=== PATIENT | male | born 1960 | race African-American/Black ===

== ENCOUNTER 2020-02-17 07:22 | Emergency (ER) | payer OTHER ==
[~2020-02-17] VITALS: Ht 177.8 cm; Wt 65.8 kg
[2020-02-17] MEDS ORDERED: fentaNYL 100 mcg/2 mL IV ONE ×2 (07:30→09:30)
--- NOTE | 2020-02-17 07:30 | NUR ---
ED Nurse Note: pt presents as per triage. pt is very restless and belligerent with staff and md. pt given explanations of plan of care. pt given vomit bag to spit phlegm in. pt requests ice chips, aware to remain npo per md. pt tolerates iv start and lab draw well.
--- NOTE | 2020-02-17 07:41 | Emergency Room Report ---
History of Present Illness General Chief Complaint: Abdominal Pain Source: Patient, EMS Present Illness HPI Patient is a 59-year-old male brought in by EMS from his hotel for abdominal pain. Patient complains of diffuse abdominal pain nausea and vomiting. He complains of nonbilious nonbloody vomitus. He denies any fever or chills. Patient states that his pain is so severe that he feels short of breath from it. Patient denies any chest pain. Patient denies any cough. He denies any dysuria or hematuria. He states that his colostomy site has been putting out normal amounts of stool that are nonbloody. Patient is extremely demanding and verbally combative with EMS, nursing staff and myself. Allergies: Coded Allergies: No Known Allergies (Unverified , 02/17/20) COVID-19 Screening Contact w/high risk pt: No Experienced COVID-19 symptoms?: No COVID-19 Testing performed PACKING ROOM WORKER: No Patient History Reviewed Nursing Documentation: PMH: Agreed; PSxH: Agreed Review of Systems All Other Systems: negative except mentioned in HPI Physical Exam Vital Signs Date Time Temp Pulse Resp B/P (MAP) Pulse Ox O2 Delivery O2 Flow Rate FiO2 02/17/20 07:18 98.2 104 19 152/88 (109) 97 Room Air Sp02 EP Interpretation: reviewed, normal General Appearance: well appearing, alert, GCS 15, mild distress Head: normocephalic, atraumatic Eyes: bilateral eye normal inspection, bilateral eye PERRL ENT: hearing grossly normal, normal pharynx, no angioedema, normal voice Neck: full range of motion, supple/symm/no masses Respiratory: chest non-tender, lungs clear, normal breath sounds, speaking full sentences Cardiovascular #1: regular rate, rhythm, no edema Gastrointestinal: other - Mild diffuse abdominal pain with no guarding or rebound, left lower quadrant colostomy intact with brown stools Rectal: deferred Genitourinary: no CVA tenderness Musculoskeletal: normal range of motion, no calf tenderness 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 Patient is adamant that she does not want a CAT scan because he states he has had too many and does not want any radiation. Both myself, the fish roe technician and bedside nurse Danielle explained to the patient that we cannot diagnose life-threatening conditions that would otherwise be visible to us on CT. Patient continues to decline any CT studies. I have ordered for renal ultrasounds due to the patient's acute renal insufficiency as well as an obstructive series of his abdomen. At 9:35 AM brain wave technician states that renal ultrasound is normal. No evidence of hydronephrosis. AT 1010am, patient also refusing x-rays. I ordered an abdominal series to look for any evidence of obstruction. At 1040 patient had an episode of elevated blood pressure. I ordered for 10 mg of IV hydralazine. Laboratory Tests Test 02/17/20 07:30 02/17/20 10:20 White Blood Count 10.2 K/UL (4.8-10.8) Red Blood Count 5.06 M/UL (4.70-6.10) Hemoglobin 14.0 G/DL (14.2-18.0) L Hematocrit 43.2 % (42.0-52.0) Mean Corpuscular Volume 85 FL (80-99) Mean Corpuscular Hemoglobin 27.7 PG (27.0-31.0) Mean Corpuscular Hemoglobin Concent 32.5 G/DL (32.0-36.0) Red Cell Distribution Width 14.0 % (11.6-14.8) Platelet Count 386 K/UL (150-450) Mean Platelet Volume 5.8 FL (6.5-10.1) L Neutrophils (%) (Auto) 67.5 % (45.0-75.0) Lymphocytes (%) (Auto) 19.4 % (20.0-45.0) L Monocytes (%) (Auto) 9.6 % (1.0-10.0) Eosinophils (%) (Auto) 0.1 % (0.0-3.0) Basophils (%) (Auto) 3.3 % (0.0-2.0) H Prothrombin Time 11.4 SEC (9.30-11.50) Prothrombin Time INR 1.0 (0.9-1.1) Activated Partial Thromboplast Time 28 SEC (23-33) Sodium Level 135 MMOL/L (136-145) L Potassium Level 3.6 MMOL/L (3.5-5.1) Chloride Level 96 MMOL/L (98-107) L Carbon Dioxide Level 25 MMOL/L (21-32) Anion Gap 14 mmol/L (5-15) Blood Urea Nitrogen 45 mg/dL (7-18) H Creatinine 4.6 MG/DL (0.55-1.30) H Estimated Glomerular Filtration Rate 15.9 mL/min (>60) Glucose Level 141 MG/DL (74-106) H Lactic Acid Level 1.90 mmol/L (0.4-2.0) Calcium Level 9.3 MG/DL (8.5-10.1) Magnesium Level 2.4 MG/DL (1.8-2.4) Total Bilirubin 1.4 MG/DL (0.2-1.0) H Direct Bilirubin 0.1 MG/DL (0.0-0.3) Aspartate Amino Transferase (AST) 34 U/L (15-37) Alanine Aminotransferase (ALT) 16 U/L (12-78) Alkaline Phosphatase 112 U/L (46-116) Troponin I 0.006 ng/mL (0.000-0.056) Total Protein 8.7 G/DL (6.4-8.2) H Albumin 4.3 G/DL (3.4-5.0) Globulin 4.4 g/dL Albumin/Globulin Ratio 1.0 (1.0-2.7) Lipase 115 U/L (73-393) Urine Color Yellow Urine Appearance Clear Urine pH 5 (4.5-8.0) Urine Specific [place] 1.025 (1.005-1.035) Urine Protein 3+ (NEGATIVE) H Urine Glucose (UA) Negative (NEGATIVE) Urine Ketones 1+ (NEGATIVE) H Urine Blood 2+ (NEGATIVE) H Urine Nitrite Negative (NEGATIVE) Urine Bilirubin Negative (NEGATIVE) Urine Urobilinogen Normal MG/DL (0.0-1.0) Urine Leukocyte Esterase 1+ (NEGATIVE) H Urine RBC 2-4 /HPF (0 - 0) H Urine WBC 2-4 /HPF (0 - 0) Urine Squamous Epithelial Cells Few /LPF (NONE/OCC) Urine Bacteria Few /HPF (NONE) Urine Hyaline Casts 0-2 /LPF (NONE) H Urine Mucus Few /LPF (NONE/OCC) H Urine Opiates Screen Negative (NEGATIVE) Urine Barbiturates Screen Negative (NEGATIVE) Phencyclidine (PCP) Screen Negative (NEGATIVE) Urine Amphetamines Screen Negative (NEGATIVE) Urine Benzodiazepines Screen Negative (NEGATIVE) Urine Cocaine Screen Negative (NEGATIVE) Urine Marijuana (THC) Screen Positive (NEGATIVE) H Laboratory Tests Test 02/17/20 07:30 White Blood Count 10.2 K/UL (4.8-10.8) Red Blood Count 5.06 M/UL (4.70-6.10) Hemoglobin 14.0 G/DL (14.2-18.0) L Hematocrit 43.2 % (42.0-52.0) Mean Corpuscular Volume 85 FL (80-99) Mean Corpuscular Hemoglobin 27.7 PG (27.0-31.0) Mean Corpuscular Hemoglobin Concent 32.5 G/DL (32.0-36.0) Red Cell Distribution Width 14.0 % (11.6-14.8) Platelet Count 386 K/UL (150-450) Mean Platelet Volume 5.8 FL (6.5-10.1) L Neutrophils (%) (Auto) 67.5 % (45.0-75.0) Lymphocytes (%) (Auto) 19.4 % (20.0-45.0) L Monocytes (%) (Auto) 9.6 % (1.0-10.0) Eosinophils (%) (Auto) 0.1 % (0.0-3.0) Basophils (%) (Auto) 3.3 % (0.0-2.0) H Prothrombin Time 11.4 SEC (9.30-11.50) Prothrombin Time INR 1.0 (0.9-1.1) Activated Partial Thromboplast Time 28 SEC (23-33) Sodium Level 135 MMOL/L (136-145) L Potassium Level 3.6 MMOL/L (3.5-5.1) Chloride Level 96 MMOL/L (98-107) L Carbon Dioxide Level 25 MMOL/L (21-32) Anion Gap 14 mmol/L (5-15) Blood Urea Nitrogen 45 mg/dL (7-18) H Creatinine 4.6 MG/DL (0.55-1.30) H Estimated Glomerular Filtration Rate 15.9 mL/min (>60) Glucose Level 141 MG/DL (74-106) H Lactic Acid Level 1.90 mmol/L (0.4-2.0) Calcium Level 9.3 MG/DL (8.5-10.1) Magnesium Level 2.4 MG/DL (1.8-2.4) Total Bilirubin 1.4 MG/DL (0.2-1.0) H Direct Bilirubin 0.1 MG/DL (0.0-0.3) Aspartate Amino Transferase (AST) 34 U/L (15-37) Alanine Aminotransferase (ALT) 16 U/L (12-78) Alkaline Phosphatase 112 U/L (46-116) Troponin I 0.006 ng/mL (0.000-0.056) Total Protein 8.7 G/DL (6.4-8.2) H Albumin 4.3 G/DL (3.4-5.0) Globulin 4.4 g/dL Albumin/Globulin Ratio 1.0 (1.0-2.7) Lipase 115 U/L (73-393) EKG Diagnostic Results Troponin ordered: Yes When was troponin ordered?: Feb 17, 2020 EKG Time: 07:31 EP Interpretation: Makeda Amaro MD Rate: normal - 7 bpm Rhythm: NSR ST Segments: no acute changes Other Impression LVH ASA given to the pt in ED: No Rhythm Strip Diag. Results Rhythm Strip Time: 07:41 EP Interpretation: yes - Makeda Amaro MD Rate: 76 bpm Rhythm: NSR, no PVC's, no ectopy Last Vital Signs Date Time Temp Pulse Resp B/P (MAP) Pulse Ox O2 Delivery O2 Flow Rate FiO2 02/17/20 07:18 98.2 104 19 152/88 (109) 97 Room Air Disposition: ADMITTED INPATIENT - Transfer to [facility] Condition: Critical Physician Consult: Dr. Deniz Prince at 1015am for transfer Additional Instructions: Please note that this report is being documented using [employer] technology. This can lead to erroneous entry secondary to incorrect interpretation by the dictating instrument. Makeda Amaro M.D. Feb 17, 2020 07:41
[2020-02-17] MEDS ORDERED: AMLODIPINE BESYL5 MG ORAL (07:56)
[2020-02-17] MEDS ORDERED: NORCO 5-325 TA1 EAC1 ORAL (07:56)
--- NOTE | 2020-02-17 07:56 | NUR ---
ED Nurse Note: pt refuses ct scan, md aware. pt states he gets too much radiation and doesnt want anymore. pt relates he is out of his htn meds and hasnt been to see his md due to covid restrictions. pt resting quietly now after pain meds given. no further n/c
[2020-02-17 08:02] LABS: BASOPHILS % (AUTO) 3.3 % (0.0-2.0); EOSINOPHILS % (AUTO) 0.1 % (0.0-3.0); HEMATOCRIT 43.2 % (42.0-52.0); LYMPHOCYTES % (AUTO) 19.4 % (20.0-45.0); MEAN CORPUSCULAR VOLUME 85 FL (80-99); MONOCYTES % (AUTO) 9.6 % (1.0-10.0); NEUTROPHILS % (AUTO) 67.5 % (45.0-75.0); PLATELET COUNT 386 K/UL (150-450); RED BLOOD COUNT 5.06 M/UL (4.70-6.10); WHITE BLOOD COUNT 10.2 K/UL (4.8-10.8)
--- NOTE | 2020-02-17 08:11 | NUR ---
ED Nurse Note: pt aware to obtain urine sample when able
[2020-02-17 08:12] LABS: CALCIUM 9.3 MG/DL (8.5-10.1); CREATININE 4.6 MG/DL (0.55-1.30); POTASSIUM 3.6 MMOL/L (3.5-5.1)
[2020-02-17 08:28] LABS: ALBUMIN 4.3 G/DL (3.4-5.0); BILIRUBIN,TOTAL 1.4 MG/DL (0.2-1.0)
[2020-02-17 08:29] LABS: BILIRUBIN,DIRECT 0.1 MG/DL (0.0-0.3)
--- NOTE | 2020-02-17 08:55 | NUR ---
ED Nurse Note: pt refuses cxr, aware.
--- NOTE | 2020-02-17 09:36 | NUR ---
ED Nurse Note: pt with bedside us being done. pt remedicated for pain return.
--- NOTE | 2020-02-17 09:44 | NUR ---
ED Nurse Note: pt with possible transfer per payor request. appears more comfrotable after dose of pain meds. attempting to void
--- NOTE | 2020-02-17 10:18 | NUR ---
ED Nurse Note: pt aware of plan for transfer
[2020-02-17 10:32] LABS: APPEARANCE,URINE CLEAR; BILIRUBIN, URINE NEGATIVE (NEGATIVE); GLUCOSE, URINE (UA) NEGATIVE (NEGATIVE); KETONES,URINE 1+ (NEGATIVE); LEUKOCYTE ESTERASE ,URINE 1+ (NEGATIVE); NITRITE,URINE NEGATIVE (NEGATIVE); PH,URINE 5 (4.5-8.0); PROTEIN,URINE 3+ (NEGATIVE); UROBILINOGEN,URINE NORMAL MG/DL (0.0-1.0)
--- NOTE | 2020-02-17 10:32 | NUR ---
ED Nurse Note: pt ok to have water po now per md. awaits transfer.
[2020-02-17 10:38] VITALS: BP 237/105
[2020-02-17 10:39] LABS: COLOR,URINE YELLOW
[2020-02-17 11:36] VITALS: BP 192/97
--- NOTE | 2020-02-17 11:36 | NUR ---
ED Nurse Note: [facility] transport here.
[2020-02-17 11:40] VITALS: BP 192/97
--- NOTE | 2020-02-18 06:19 | Diagnostic Imaging Report ---
EXAM: US Abdomen Complete CLINICAL HISTORY: PAIN TECHNIQUE: Real-time ultrasound of the abdomen with image documentation. COMPARISON: No relevant prior studies available. FINDINGS/IMPRESSION: The right kidney measures 9.1 cm. No hydronephrosis or nephrolithiasis. The left kidney measures 9.5 cm. No hydronephrosis or nephrolithiasis. The prevoid bladder volume is 122 mL. No bladder wall thickening or bladder debris. Post void residual was not assessed. Normal renal echogenicity bilaterally.
== END 2020-02-17 11:45 | disposition other institution (70) ==
LOC: EDBD 07:22 → EMR 07:45 → CMPBEDREQ 08:43 → EMR 11:45
DX: N19 Unspecified kidney failure (principal); E86.0 Dehydration; I10 Essential (primary) hypertension; F12.20 Cannabis dependence, uncomplicated
CPT/HCPCS: 36415; 76770; 80053; 80307; 81003; 82248; 83605; 83690; 83735; 84484; 85025; 85610; 85730; 86850; 86900; 86901; 96361; 96374; 96375; 96376; J0360; J2405; J3010; J7030; Z7502; 99285

== ENCOUNTER 2020-04-10 14:19 | Emergency (ER) | payer OTHER ==
[~2020-04-10] VITALS: Ht 188 cm; Wt 81.6 kg
[~2020-04-10 14:19] MED LIST: AMLODIPINE BESYL5 MG ORAL; NORCO 5-325 TA1 EAC1 ORAL
[2020-04-10 14:25] VITALS: BP 114/80
--- NOTE | 2020-04-10 14:25 | NUR ---
ED Nurse Note: pt BIBA LAD [facility] 57 from a [facility] for abd pain, N/V x2 days. EMS report witnessing 1 episode of emesis, did not appear to have any blood in it. pt is noted to have a colostomy bag, his stoma is protruding into colostomy bag, appears to be red, no signs of cyanosis. pt presents with erratic behavior, screaming and groaniing, restless, spitting up and actively retching.
--- NOTE | 2020-04-10 14:28 | Emergency Room Report ---
History of Present Illness General Chief Complaint: Abdominal Pain Source: Patient, EMS Present Illness HPI Patient is a 59-year-old male past medical history of hypertension, asthma, seizure disorder and status post colostomy placement who presents to the ER complaining of abdominal pain for 2 days. Patient was brought in from his homeless hotel residence by EMS to the emergency room. He complains of 2 days of lower abdominal pain with associated nausea and nonbilious nonbloody vomitus. He denies having any blood in his colostomy. He denies any fever or chills. He denies any chest pain or shortness of breath. He denies any cough. Patient states he did not take any medications prior to arrival. Allergies: Coded Allergies: LISINOPRIL (Verified Allergy, Unknown, 04/10/20) COVID-19 Screening Contact w/high risk pt: No Experienced COVID-19 symptoms?: No COVID-19 Testing performed HYBRID CAR MECHANIC: No Nursing Documentation-PMH Hx Hypertension: Yes Hx Asthma: Yes Hx Gastrointestinal Problems: Yes - colostomy History Of Psychiatric Problem: Yes Hx Seizures: Yes Review of Systems All Other Systems: negative except mentioned in HPI Physical Exam Vital Signs Date Time Temp Pulse Resp B/P (MAP) Pulse Ox O2 Delivery O2 Flow Rate FiO2 04/10/20 14:21 98.1 80 18 114/80 (91) 100 Room Air Sp02 EP Interpretation: reviewed, normal General Appearance: alert, GCS 15, non-toxic, mild distress Head: normocephalic, atraumatic Eyes: bilateral eye normal inspection, bilateral eye PERRL ENT: dry mucus membranes Neck: full range of motion, supple/symm/no masses Respiratory: chest non-tender, lungs clear, normal breath sounds, speaking full sentences Cardiovascular #1: regular rate, rhythm Gastrointestinal: other - Left lower and right lower quadrant abdominal tenderness with no rebound or guarding left lower quadrant colostomy in place w ith brown normal-appearing stool Rectal: deferred Genitourinary: no CVA tenderness 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 Patient given IV narcotic pain medicine as well as Zofran for nausea. Patient CT demonstrates bilateral perinephric edema of unknown significance. Patient given IV fluids. Patient will be transferred to [facility] for further treatment and evaluation. Laboratory Tests Test 04/10/20 14:30 04/10/20 15:06 White Blood Count 10.1 K/UL (4.8-10.8) Red Blood Count 4.37 M/UL (4.70-6.10) L Hemoglobin 13.0 G/DL (14.2-18.0) L Hematocrit 40.3 % (42.0-52.0) L Mean Corpuscular Volume 92 FL (80-99) Mean Corpuscular Hemoglobin 29.7 PG (27.0-31.0) Mean Corpuscular Hemoglobin Concent 32.2 G/DL (32.0-36.0) Red Cell Distribution Width 14.4 % (11.6-14.8) Platelet Count 244 K/UL (150-450) Mean Platelet Volume 6.0 FL (6.5-10.1) L Neutrophils (%) (Auto) 72.5 % (45.0-75.0) Lymphocytes (%) (Auto) 21.1 % (20.0-45.0) Monocytes (%) (Auto) 4.2 % (1.0-10.0) Eosinophils (%) (Auto) 0.8 % (0.0-3.0) Basophils (%) (Auto) 1.4 % (0.0-2.0) Prothrombin Time 11.3 SEC (9.30-11.50) Prothrombin Time INR 1.0 (0.9-1.1) Activated Partial Thromboplast Time 20 SEC (23-33) L Sodium Level 143 MMOL/L (136-145) Potassium Level 3.5 MMOL/L (3.5-5.1) Chloride Level 107 MMOL/L (98-107) Carbon Dioxide Level 27 MMOL/L (21-32) Blood Urea Nitrogen 17 mg/dL (7-18) Creatinine 1.1 MG/DL (0.55-1.30) Estimated Glomerular Filtration Rate > 60 mL/min (>60) Glucose Level 112 MG/DL (74-106) H Calcium Level 8.9 MG/DL (8.5-10.1) Magnesium Level 1.8 MG/DL (1.8-2.4) Total Bilirubin 0.9 MG/DL (0.2-1.0) Aspartate Amino Transferase (AST) 33 U/L (15-37) Alanine Aminotransferase (ALT) 14 U/L (12-78) Alkaline Phosphatase 89 U/L (46-116) Total Protein 8.1 G/DL (6.4-8.2) Albumin 3.9 G/DL (3.4-5.0) Globulin 4.2 g/dL Albumin/Globulin Ratio 0.9 (1.0-2.7) L Lipase > 2000 U/L (73-393) H Urine Color Pale yellow Urine Appearance Clear Urine pH 7 (4.5-8.0) Urine Specific [place] 1.005 (1.005-1.035) Urine Protein 1+ (NEGATIVE) H Urine Glucose (UA) Negative (NEGATIVE) Urine Ketones 1+ (NEGATIVE) H Urine Blood Negative (NEGATIVE) Urine Nitrite Negative (NEGATIVE) Urine Bilirubin Negative (NEGATIVE) Urine Urobilinogen Normal MG/DL (0.0-1.0) Urine Leukocyte Esterase Negative (NEGATIVE) Urine RBC 0-2 /HPF (0 - 0) H Urine WBC 0-2 /HPF (0 - 0) Urine Squamous Epithelial Cells None /LPF (NONE/OCC) Urine Bacteria None /HPF (NONE) Urine Opiates Screen Negative (NEGATIVE) Urine Barbiturates Screen Negative (NEGATIVE) Phencyclidine (PCP) Screen Negative (NEGATIVE) Urine Amphetamines Screen Negative (NEGATIVE) Urine Benzodiazepines Screen Negative (NEGATIVE) Urine Cocaine Screen Negative (NEGATIVE) Urine Marijuana (THC) Screen Positive (NEGATIVE) H Last Vital Signs Date Time Temp Pulse Resp B/P (MAP) Pulse Ox O2 Delivery O2 Flow Rate FiO2 04/10/20 14:21 98.1 80 18 114/80 (91) 100 Room Air Disposition: ADMITTED INPATIENT - [facility] Condition: Critical Additional Instructions: Please note that this report is being documented using [employer] technology. This can lead to erroneous entry secondary to incorrect interpretation by the dictating instrument. Makeda Amaro M.D. Apr 10, 2020 14:28
[2020-04-10] MEDS ORDERED: Omnipaque-300 100ml vial INJ PRN (14:30)
[2020-04-10] MEDS ORDERED: Morphine Sulfate 4mg/ml Inj (IV USE ONLY) IVP ONE (14:30)
[2020-04-10 14:47] LABS: BASOPHILS % (AUTO) 1.4 % (0.0-2.0); EOSINOPHILS % (AUTO) 0.8 % (0.0-3.0); HEMATOCRIT 40.3 % (42.0-52.0); LYMPHOCYTES % (AUTO) 21.1 % (20.0-45.0); MEAN CORPUSCULAR VOLUME 92 FL (80-99); MONOCYTES % (AUTO) 4.2 % (1.0-10.0); NEUTROPHILS % (AUTO) 72.5 % (45.0-75.0); PLATELET COUNT 244 K/UL (150-450); RED BLOOD COUNT 4.37 M/UL (4.70-6.10); RED CELL DISTRIBUTION WIDTH 14.4 % (11.6-14.8); WHITE BLOOD COUNT 10.1 K/UL (4.8-10.8)
[2020-04-10] MEDS ORDERED: LORazepam Inj 2mg/ml 1ml IV ONE (15:15)
[2020-04-10 15:18] LABS: ALANINE AMINOTRANSFERASE 14 U/L (12-78); ALBUMIN 3.9 G/DL (3.4-5.0); ALBUMIN/GLOBULIN RATIO 0.9 (1.0-2.7); ALKALINE PHOSPHATASE 89 U/L (46-116); ASPARTATE AMINO TRANSFERASE 33 U/L (15-37); BILIRUBIN,TOTAL 0.9 MG/DL (0.2-1.0); BLOOD UREA NITROGEN 17 mg/dL (7-18); CALCIUM 8.9 MG/DL (8.5-10.1); CARBON DIOXIDE 27 MMOL/L (21-32); CHLORIDE 107 MMOL/L (98-107); CREATININE 1.1 MG/DL (0.55-1.30); POTASSIUM 3.5 MMOL/L (3.5-5.1); SODIUM 143 MMOL/L (136-145)
[2020-04-10 15:50] LABS: APPEARANCE,URINE CLEAR; BILIRUBIN, URINE NEGATIVE (NEGATIVE); COLOR,URINE PALE YELLOW; GLUCOSE, URINE (UA) NEGATIVE (NEGATIVE); KETONES,URINE 1+ (NEGATIVE); LEUKOCYTE ESTERASE ,URINE NEGATIVE (NEGATIVE); NITRITE,URINE NEGATIVE (NEGATIVE); PH,URINE 7 (4.5-8.0); PROTEIN,URINE 1+ (NEGATIVE); UROBILINOGEN,URINE NORMAL MG/DL (0.0-1.0)
--- NOTE | 2020-04-10 16:03 | NUR ---
PT REFUSED EKG
[2020-04-10] MEDS ORDERED: CATAPRES0.1 MG ORAL (16:37)
--- NOTE | 2020-04-10 16:54 | Diagnostic Imaging Report ---
Clinical Indication: Lower abdominal pain Technique: No oral contrast utilized, per emergency room physician request IV administration nonionic contrast. Venous phase spiral acquisition obtained through the abdomen and pelvis. Multiplanar reconstructions were generated. Total dose length product 198 mGycm. CTDIvol(s) 3 mGy. Dose reduction achieved using automated exposure control Comparison: none Findings: Limited assessment of the GI tract, due to lack of enteric contrast administration . What is probably a normal appendix is demonstrated. There is a distal transverse colostomy, evidence of prior left colon resection and a Elle pouch. There is a small bowel surgical anastomotic staple line in the right upper quadrant. No small bowel distention. Distal esophagus is unremarkable. The stomach is mildly distended with gas and fluid. No free or loculated intraperitoneal gas or fluid. The gallbladder contains a gallstone. No biliary ductal dilatation. The liver, pancreas, spleen, adrenals are unremarkable. There is a small amount of perinephric fluid adjacent to the both kidneys. No renal parenchymal abnormality demonstrated. The prostate is enlarged. No pelvic mass or adenopathy. The included lung bases demonstrate a few small bullae on the right. The bones demonstrate thoracolumbar mild scoliotic deformity. Impression: Limited assessment of the GI tract, due to lack of enteric contrast administration Postsurgical changes as described No definite acute process Nonspecific bilateral perinephric fluid, significance uncertain. No definite evidence of renal inflammation otherwise Cholelithiasis Scoliosis Minimal COPD changes The CT scanner at [facility] is accredited by the [employer] and the scans are performed using protocols designed to limit radiation exposure to as low as reasonably achievable to attain images of sufficient resolution adequate for diagnostic evaluation.
--- NOTE | 2020-04-10 17:31 | NUR ---
ED Nurse Note: pt refusing US at this time, refuses to lie on his back for US to be done. FLAKITAD notified
[2020-04-10 17:36] VITALS: BP 117/86
[2020-04-10 18:45] VITALS: BP 193/90
--- NOTE | 2020-04-10 18:45 | NUR ---
ED Nurse Note: pt became HTN at 193/90, ERMD notified
--- NOTE | 2020-04-10 19:59 | NUR ---
ED Nurse Note: REPORT GIVEN TO KSENIA NURSE [employer] HR DEVELOPER. PATIENT TO BE ADMITTED TO [facility] UNDER THE CARE OF SUDEEP BRAVO. [facility] PATIENT LEFT VIA GURNEY WITH EMS. BELONGINGS AND TRANSFER PACKET SENT WITH PATIENT. PATIENT STABLE FOR TRANSFER.
[2020-04-10 20:01] VITALS: BP 154/84
== END 2020-04-10 20:00 | disposition other institution (70) ==
LOC: EDBD 14:19 → EMR 15:08 → EDBEDREQ 17:01 → EMR 20:00
DX: K85.90 Acute pancreatitis without necrosis or infection, unspecified (principal); N28.89 Other specified disorders of kidney and ureter; F12.20 Cannabis dependence, uncomplicated; I10 Essential (primary) hypertension; J45.909 Unspecified asthma, uncomplicated; G40.909 Epilepsy, unspecified, not intractable, without status epilepticus; Z93.3 Colostomy status; Z88.8 Allergy status to other drugs, medicaments and biological substances
CPT/HCPCS: 36415; 74177; 80053; 80307; 81003; 83690; 83735; 85025; 85610; 85730; 96361; 96374; 96375; 96376; J0360; J2270; J2405; J7030; Q9965; U0004; Z7502; 99285

== ENCOUNTER 2020-05-09 09:34 | Inpatient (IN) | payer OTHER ==
[~2020-05-09] VITALS: Ht 172.7 cm; Wt 62.6 kg
[2020-05-09] VITALS (7 sets, daily range): BP systolic 178–247; BP diastolic 74–110
[~2020-05-09 09:34] MED LIST changes: +CATAPRES0.1 MG ORAL
--- NOTE | 2020-05-09 09:40 | NUR ---
ED Nurse Note: Patient from a halfway and brought in by ambulance due to abd pain with N/V. Per EMS, the colostomy bag has been full. Patient came in AAO x4, unabel to follow commands dfue to pain and is vomiting saliva with bile. Patient is restless. ERMD aware.
[2020-05-09] MEDS ORDERED: Morphine Sulfate 4mg/ml Inj (IV USE ONLY) IVP ONE (09:45)
--- NOTE | 2020-05-09 09:47 | Emergency Room Report ---
History of Present Illness General Chief Complaint: Abdominal Pain Source: Patient, EMS Present Illness HPI Disclaimer: Please note that this report is being documented using DRAGON technology. This can lead to erroneous entry secondary to incorrect interpretation by the dictating instrument. HPI: 59-year-old male past medical history of hypertension, asthma, seizure disorder and status post colostomy placement who presents to the ER complaining of abdominal pain for 2 days. Patient currently lives in a [facility]. Apparently he has had abdominal pain for the past couple of days and developed nausea and vomiting today. He denies cough or fever but does report some mild shortness of breath. Brought in by EMS. And is a poor historian. Allergies: Coded Allergies: LISINOPRIL (Verified Allergy, Unknown, 04/10/20) METOCLOPRAMIDE (Unverified Allergy, Unknown, 05/09/20) COVID-19 Screening Contact w/high risk pt: No Experienced COVID-19 symptoms?: No COVID-19 Testing performed BOBBIN DRIER: No Patient History Reviewed Nursing Documentation: PMH: Agreed; PSxH: Agreed Nursing Documentation-PMH Past Medical History: No History, Except For Hx Hypertension: Yes Hx Asthma: Yes Hx Gastrointestinal Problems: Yes - colostomy Hx Seizures: Yes Review of Systems All Other Systems: negative except mentioned in HPI Physical Exam Vital Signs Date Time Temp Pulse Resp B/P (MAP) Pulse Ox O2 Delivery O2 Flow Rate FiO2 05/09/20 09:30 97.5 80 20 142/90 (107) 100 Room Air Sp02 EP Interpretation: reviewed, normal General Appearance: mild distress, other - Diaphoretic Head: normocephalic, atraumatic Eyes: bilateral eye PERRL, bilateral eye EOMI ENT: hearing grossly normal, moist mucus membranes Neck: full range of motion, supple Respiratory: lungs clear, normal breath sounds, no rhonchi, no respiratory distress, no retraction, no wheezing Cardiovascular #1: normal peripheral pulses, regular rate, rhythm, no murmur Gastrointestinal: no guarding, other - Colostomy present, with output. Diffuse mild tenderness noted. Neurologic: alert, oriented x3, no focal defects Skin: normal color, warm/dry Medical Decision Making Diagnostic Impression: Primary Impression: Nausea & vomiting Additional Impressions: Pancreatitis Uncontrolled hypertension ER Course MDM: Differential diagnosis included but not limited to obstruction, colitis, gastritis, pneumonia, infectious process, COVID-19 Clinical course-IV inserted, patient given IV fluids pain control, Ativan and multiple doses of antiemetics. CT scan of the abdomen and pelvis ordered and demonstrated no evidence of a small bowel obstruction. Unfortunately patient continued to have episodes of emesis despite medications in the ER and was unable to tolerate oral intake so will require admission to the hospital for further observation and IV hydration. Patient was given multiple doses of hypertensives as well. Labs - Laboratory Tests Test 05/09/20 10:48 05/09/20 11:20 05/10/20 06:00 White Blood Count 8.0 K/UL (4.8-10.8) 8.7 K/UL (4.8-10.8) Red Blood Count 4.47 M/UL (4.70-6.10) L 4.23 M/UL (4.70-6.10) L Hemoglobin 13.5 G/DL (14.2-18.0) L 12.7 G/DL (14.2-18.0) L Hematocrit 42.5 % (42.0-52.0) 39.9 % (42.0-52.0) L Mean Corpuscular Volume 95 FL (80-99) 95 FL (80-99) Mean Corpuscular Hemoglobin 30.2 PG (27.0-31.0) 30.1 PG (27.0-31.0) Mean Corpuscular Hemoglobin Concent 31.7 G/DL (32.0-36.0) L 31.9 G/DL (32.0-36.0) L Red Cell Distribution Width 15.2 % (11.6-14.8) H 14.4 % (11.6-14.8) Platelet Count 261 K/UL (150-450) 266 K/UL (150-450) Mean Platelet Volume 5.4 FL (6.5-10.1) L 6.3 FL (6.5-10.1) L Neutrophils (%) (Auto) 82.8 % (45.0-75.0) H 76.5 % (45.0-75.0) H Lymphocytes (%) (Auto) 11.6 % (20.0-45.0) L 11.1 % (20.0-45.0) L Monocytes (%) (Auto) 3.4 % (1.0-10.0) 11.5 % (1.0-10.0) H Eosinophils (%) (Auto) 1.0 % (0.0-3.0) 0.0 % (0.0-3.0) Basophils (%) (Auto) 1.2 % (0.0-2.0) 0.9 % (0.0-2.0) Prothrombin Time 11.1 SEC (9.30-11.50) Prothrombin Time INR 1.0 (0.9-1.1) Activated Partial Thromboplast Time 24 SEC (23-33) Sodium Level 140 MMOL/L (136-145) 139 MMOL/L (136-145) Potassium Level 3.8 MMOL/L (3.5-5.1) 3.4 MMOL/L (3.5-5.1) L Chloride Level 102 MMOL/L (98-107) 101 MMOL/L (98-107) Carbon Dioxide Level 25 MMOL/L (21-32) 28 MMOL/L (21-32) Anion Gap 13 mmol/L (5-15) 10 mmol/L (5-15) Blood Urea Nitrogen 18 mg/dL (7-18) 27 mg/dL (7-18) H Creatinine 1.3 MG/DL (0.55-1.30) 1.9 MG/DL (0.55-1.30) H Estimated Glomerular Filtration Rate > 60 mL/min (>60) 44.0 mL/min (>60) Glucose Level 107 MG/DL (74-106) H 119 MG/DL (74-106) H Lactic Acid Level 2.00 mmol/L (0.4-2.0) Calcium Level 9.4 MG/DL (8.5-10.1) 9.2 MG/DL (8.5-10.1) Total Bilirubin 1.0 MG/DL (0.2-1.0) 1.0 MG/DL (0.2-1.0) Aspartate Amino Transferase (AST) 33 U/L (15-37) 27 U/L (15-37) Alanine Aminotransferase (ALT) 21 U/L (12-78) 18 U/L (12-78) Alkaline Phosphatase 105 U/L (46-116) 89 U/L (46-116) Total Protein 8.9 G/DL (6.4-8.2) H 8.4 G/DL (6.4-8.2) H Albumin 4.6 G/DL (3.4-5.0) 3.8 G/DL (3.4-5.0) Globulin 4.3 g/dL 4.6 g/dL Albumin/Globulin Ratio 1.1 (1.0-2.7) 0.8 (1.0-2.7) L Amylase Level 233 U/L (25-115) H Lipase 399 U/L (73-393) H 941 U/L (73-393) H Urine Color Pale yellow Urine Appearance Clear Urine pH 8 (4.5-8.0) Urine Specific [place] 1.015 (1.005-1.035) Urine Protein 3+ (NEGATIVE) H Urine Glucose (UA) Negative (NEGATIVE) Urine Ketones 1+ (NEGATIVE) H Urine Blood 2+ (NEGATIVE) H Urine Nitrite Negative (NEGATIVE) Urine Bilirubin Negative (NEGATIVE) Urine Urobilinogen Normal MG/DL (0.0-1.0) Urine Leukocyte Esterase Negative (NEGATIVE) Urine RBC 0 /HPF (0 - 0) Urine WBC 0 /HPF (0 - 0) Urine Squamous Epithelial Cells Occasional /LPF Urine Bacteria Occasional /HPF (NONE) Microbiology Date/Time Source Procedure Growth Status 05/09/20 10:00 Nasopharynx SARS-CoV-2 RdRp Gene Assay - Final Complete On reevaluation: Plan- CT/MRI/US Diagnostic Results CT/MRI/US Diagnostic Results : Imaging Test Ordered: CT scan abdomen and pelvis Impression IMPRESSION: 1. Previous bowel surgery with ostomy in the left side of the abdomen. Parastomal hernia with externalized bowel segments and some fluid. 2. Cholelithiasis. Last Vital Signs Date Time Temp Pulse Resp B/P (MAP) Pulse Ox O2 Delivery O2 Flow Rate FiO2 05/09/20 09:30 97.5 80 20 142/90 (107) 100 Room Air Status: improved Disposition: ADMITTED INPATIENT Condition: Serious Nile Macias M.D. May 09, 2020 09:47
[2020-05-09] MEDS ORDERED: LORazepam Inj 2mg/ml 1ml ONE (09:55)
[2020-05-09] MEDS ORDERED: LORazepam Inj 2mg/ml 1ml IV ONE ×2 (10:00→17:00)
--- NOTE | 2020-05-09 10:07 | NUR ---
ED Nurse Note: Rapid covid19 swab sent. IV line established by primary RN but was unable to draw out blood from it. Called lab for blood draw.
--- NOTE | 2020-05-09 10:16 | NUR ---
ED Nurse Note: Mariangel at the bed side for blood draw. patient starts to sat down to 87% on room air. Dr Macias ordered oxygen. RN placed o2 at 5LPM via nasal cannula. Sat went up to 93%.
--- NOTE | 2020-05-09 10:46 | NUR ---
ED Nurse Note: Patient taken to CT with portable oxygen at 5LPM.
[2020-05-09 10:57] LABS: BASOPHILS % (AUTO) 1.2 % (0.0-2.0); HEMATOCRIT 42.5 % (42.0-52.0); HEMOGLOBIN 13.5 G/DL (14.2-18.0); LYMPHOCYTES % (AUTO) 11.6 % (20.0-45.0); MEAN CORPUSCULAR VOLUME 95 FL (80-99); MONOCYTES % (AUTO) 3.4 % (1.0-10.0); NEUTROPHILS % (AUTO) 82.8 % (45.0-75.0); PLATELET COUNT 261 K/UL (150-450); RED BLOOD COUNT 4.47 M/UL (4.70-6.10); RED CELL DISTRIBUTION WIDTH 15.2 % (11.6-14.8)
--- NOTE | 2020-05-09 11:00 | NUR ---
ED Nurse Note: Patient came back from CT and more calm at this time.
--- NOTE | 2020-05-09 11:17 | NUR ---
ED Nurse Note: BP of 247/[address] Macias was notified.
--- NOTE | 2020-05-09 11:24 | NUR ---
ED Nurse Note: Collected urine specimen then sent.
[2020-05-09 11:28] LABS: ANION GAP 13 mmol/L (5-15); BLOOD UREA NITROGEN 18 mg/dL (7-18); CALCIUM 9.4 MG/DL (8.5-10.1); CARBON DIOXIDE 25 MMOL/L (21-32); CHLORIDE 102 MMOL/L (98-107); CREATININE 1.3 MG/DL (0.55-1.30); POTASSIUM 3.8 MMOL/L (3.5-5.1); SODIUM 140 MMOL/L (136-145)
[2020-05-09 11:32] LABS: ALANINE AMINOTRANSFERASE 21 U/L (12-78); ALBUMIN 4.6 G/DL (3.4-5.0); ALBUMIN/GLOBULIN RATIO 1.1 (1.0-2.7); ALKALINE PHOSPHATASE 105 U/L (46-116); AMYLASE 233 U/L (25-115); ASPARTATE AMINO TRANSFERASE 33 U/L (15-37)
[2020-05-09 11:36] LABS: APPEARANCE,URINE CLEAR; BILIRUBIN, URINE NEGATIVE (NEGATIVE); COLOR,URINE PALE YELLOW; GLUCOSE, URINE (UA) NEGATIVE (NEGATIVE); KETONES,URINE 1+ (NEGATIVE); LEUKOCYTE ESTERASE ,URINE NEGATIVE (NEGATIVE); NITRITE,URINE NEGATIVE (NEGATIVE); PH,URINE 8 (4.5-8.0); PROTEIN,URINE 3+ (NEGATIVE); UROBILINOGEN,URINE NORMAL MG/DL (0.0-1.0)
--- NOTE | 2020-05-09 12:32 | Diagnostic Imaging Report ---
EXAM: CT Abdomen and Pelvis Without Intravenous Contrast CLINICAL HISTORY: PAIN TECHNIQUE: Axial computed tomography images of the abdomen and pelvis without intravenous contrast. CTDI is 3.70 mGy and DLP is 196.40 mGy-cm. One or more of the following dose reduction techniques were used: automated exposure control, adjustment of the mA and/or kV according to patient size, use of iterative reconstruction technique. COMPARISON: No relevant prior studies available. FINDINGS: Lung bases: Unremarkable. ABDOMEN: Liver: Unremarkable Gallbladder and bile ducts: Cholelithiasis. Pancreas: Unremarkable. Spleen: Unremarkable. Adrenals: Bulbous adrenal glands. Kidneys and ureters: No renal calculi or obstructive changes. Stomach and bowel: Previous bowel surgery with ostomy in the left side of the abdomen. Parastomal hernia with externalized bowel segments and some fluid. PELVIS: Appendix: No findings to suggest acute appendicitis. Bladder: Unremarkable. Reproductive: Unremarkable. ABDOMEN and PELVIS: Intraperitoneal space: Trace fluid in the pelvis. Bones/joints: No acute fracture. Soft tissues: See above. Vasculature: Unremarkable. No abdominal aortic aneurysm. Lymph nodes: No enlarged lymph nodes. IMPRESSION: 1. Previous bowel surgery with ostomy in the left side of the abdomen. Parastomal hernia with externalized bowel segments and some fluid. 2. Cholelithiasis.
--- NOTE | 2020-05-09 14:37 | NUR ---
ED Nurse Note: Patient keeps spitting all over the floor. BP of 204/[address] Moctezuma was notified. Waiting for new orders.
[2020-05-09] MEDS ORDERED: Haloperidol 5mg/ml Inj IM ONE (17:00)
--- NOTE | 2020-05-09 19:02 | NUR ---
ED Nurse Note: Rosie Rivers RN of telemetry unit and is aware of BP of 186/97.
--- NOTE | 2020-05-09 19:03 | NUR ---
ED Nurse Note: Pt laying in bed with eyes closed, arousable to voice. Pt is AAOx4, no complaints from pt at the moment. EDMD aware pt is hypertensive SBP 180s.
--- NOTE | 2020-05-09 19:05 | NUR ---
HAND-OFF: Report given to tyler CAZARES.
--- NOTE | 2020-05-09 20:19 | NUR ---
NURSE NOTES: Patient received from DEBORA Clay from ED. Patient asleep on bed, no complaints of pain or discomfort at this time. On room air, saturating well at 96%. Noted to be Sinus tachy on low vision therapist. IV site on left hand #22g, flushed and asymptomatic. Not in acute distress at this time. Left a message with Primary MD for admission orders. Oriented to hospital policy and protocols.
--- NOTE | 2020-05-09 20:23 | NUR ---
NURSE NOTES: Dr. White saw patient. Admission orders given. Will note and carry out.
[2020-05-09] MEDS: cefTRIAXone 1 GM in D5W 55 ML IVPB SCH (22:03)
[2020-05-10] VITALS (7 sets, daily range): BP systolic 110–191; BP diastolic 57–113
--- NOTE | 2020-05-10 03:00 | History and Physical Report ---
DATE OF ADMISSION: 05/09/2020 HISTORY OF PRESENT ILLNESS: This is a 59-year-old male, came to the emergency room for uncontrolled high blood pressure, generalized weakness, abdominal pain, dehydration, acute renal failure, recurrent nausea and vomiting. PAST MEDICAL HISTORY: Significant for hypertension. MEDICATIONS: He is taking Norvasc and clonidine. ALLERGIES: NKA. FAMILY HISTORY: Noncontributory. SOCIAL HISTORY: Lives at the retirement. PHYSICAL EXAMINATION: GENERAL: This is a middle-age man, slightly anxious, still having nausea, vomiting, and abdominal pain. VITAL SIGNS: His current blood pressure 187/97, pulse 115, respiration is 16, temperature 98.7. HEENT: AT/NC. EOMI. PERRLA. NECK: Supple. No supraclavicular lymphadenopathy. Pharynx clear. Trachea midline. CHEST: Bilaterally clear. CARDIOVASCULAR: Regular rhythm. No gallop. No murmur. ABDOMEN: Soft. Positive bowel sounds. EXTREMITIES: CCE. NEUROLOGICAL: The patient has no focal deficit. LABORATORY DATA: White counts are 8, hemoglobin 13. Chemistry, BUN 18 and creatinine 1.3. Lactic acid is 2. Amylase 233, lipase 339. His microbiology report, COVID is negative. His imaging studies, abdominal CT showing intra space. The patient had osteoma surgery on the left side abdomen, parastomal hernia, cholelithiasis. ASSESSMENT: 1. Acute pancreatitis. 2. Malignant hypertension. 3. Nausea and vomiting. PLAN: Will admit on telemetry bed. Start keep him NPO. Start hydralazine 10 mg q.6 hours p.r.n. add Lopressor 10 mg twice a day and start liquid diet, antibiotics. Consider Cardiology and GI consult. Kermit White M.D. DR: Lili JOB#: [id number] CC:
[2020-05-10 07:03] LABS: BASOPHILS % (AUTO) 0.9 % (0.0-2.0); HEMATOCRIT 39.9 % (42.0-52.0); HEMOGLOBIN 12.7 G/DL (14.2-18.0); LYMPHOCYTES % (AUTO) 11.1 % (20.0-45.0); MEAN CORPUSCULAR VOLUME 95 FL (80-99); MONOCYTES % (AUTO) 11.5 % (1.0-10.0); NEUTROPHILS % (AUTO) 76.5 % (45.0-75.0); PLATELET COUNT 266 K/UL (150-450); RED BLOOD COUNT 4.23 M/UL (4.70-6.10); RED CELL DISTRIBUTION WIDTH 14.4 % (11.6-14.8); WHITE BLOOD COUNT 8.7 K/UL (4.8-10.8)
[2020-05-10 07:32] LABS: ALBUMIN 3.8 G/DL (3.4-5.0); ALBUMIN/GLOBULIN RATIO 0.8 (1.0-2.7); CALCIUM 9.2 MG/DL (8.5-10.1); CREATININE 1.9 MG/DL (0.55-1.30); POTASSIUM 3.4 MMOL/L (3.5-5.1)
--- NOTE | 2020-05-10 07:32 | NUR ---
NURSE HAND-OFF REPORT: Important Events on Shift:[Admitted during the shift. Endorsed with the AM RN regarding order clarifications. Also endorsed regarding patient's strip (change in ST segment); EKG and strips on chart.] Patient Status: [Full code] Diet: [Clear liquid diet] Pending Orders: [] Pending Results/Labs:[] Pending MD notification:[] Latest Vital Signs: Temperature 98.9 , Pulse 94 , B/P 191 /113 , Respiratory Rate 19 , O2 SAT 98 , Room Air, O2 Flow Rate 5.0 . Vital Sign Comment: [] EKG Rhythm: Sinus Rhythm Rhythm change?: N MD Notified?: - MD Response: Latest Todd Fall Score: 20 Fall Risk: Low Risk Safety Measures: Call light Within Reach, Bed Alarm Zone 1, Side Rails Side Rails x2, Bed position Low and Locked. Fall Precautions: Yellow Socks Yellow Gown Door Sign Patient Fall Education Report given to [DEBORA Raymundo].
--- NOTE | 2020-05-10 07:33 | NUR ---
NURSE NOTES: Hand-off report received by Jesus Hernandez RN. Patient in stable condition, on room air, breathing even and unlabored, denies chest pain/pressure and abdominal pain at this time. Alert and oriented to baseline (x4), responsive to verbal and tactile stimuli. Bed in lowest and locked position, bed alarm on.
--- NOTE | 2020-05-10 08:10 | NUR ---
NURSE NOTES: Notified Dr. White regarding potassium 3.4 and he gave the order of potassium chloride 20mEq IV. Noted and will carry out. Notified Dr. Lopez regarding lipase that went from 399 to now 941, amylase 233. Awaiting response/callback.
--- NOTE | 2020-05-10 08:13 | NUR ---
CASE MANAGEMENT: INITIAL REVIEW 59 YO M BIBA FROM HOME CC: ABD PAIN PMHx: hypertension, asthma, seizure disorder and status post colostomy placement SI:NAUSEA AND VOMITING VS: T 97.5 HR 80 RR 20 B/P 142/90 SATS 100% ON RA LABS: GLU 107 LIPASE 399 AMYLASE 233 IS: ZOFRAN IV X2 MORPHINE IV X1 NS BOLUS X1 ATIVAN IV X1 HYDRALAZINE IV X1 PATIENT ADMITTED TO [facility] 05/09/2020 @ 3 DCP: HOME PLAN OF CARE: NPO Cardiology and GI consult
--- NOTE | 2020-05-10 08:14 | NUR ---
NURSE NOTES: Notified Dr. Gutiérrez regarding ST elevation that occurred 04:00 today and the EKG that was done thereafter. Dr. Gutiérrez made aware.
[2020-05-10] MEDS: HydrALAZINE 50mg tab ORAL SCH ×3 (09:06→18:00)
--- NOTE | 2020-05-10 11:22 | NUR ---
NURSE NOTES: Called and left a voicemail for Dr. Lopez regarding abnormal findings, abdominal status and amylase and lipase levels. Awaiting callback.
[2020-05-10] MEDS ORDERED: traMADol 50mg tab ORAL PRN (14:00)
--- NOTE | 2020-05-10 15:38 | General Progress Note ---
Subjective Constitutional: Reports: fever, weakness HEENT: Reports: no symptoms Cardiovascular: Reports: no symptoms Respiratory: Reports: no symptoms Gastrointestinal/Abdominal: Reports: abdominal pain, other - open wound in abdomen Neurologic/Psychiatric: Reports: no symptoms Allergies: Coded Allergies: LISINOPRIL (Verified Allergy, Unknown, 04/10/20) METOCLOPRAMIDE (Unverified Allergy, Unknown, 05/09/20) Subjective awake in bed Objective Last 24 Hour Vital Signs Date Time Temp Pulse Resp B/P (MAP) Pulse Ox O2 Delivery O2 Flow Rate FiO2 05/10/20 14:47 98.8 05/10/20 13:00 115/75 05/10/20 12:00 85 05/10/20 12:00 97.9 89 20 116/63 (80) 99 05/10/20 09:06 135/83 05/10/20 09:06 89 135/83 05/10/20 08:00 98.8 89 16 135/83 (100) 99 05/10/20 08:00 86 05/10/20 06:11 191/113 05/10/20 04:00 97 05/10/20 04:00 98.9 94 19 191/113 (139) 98 05/10/20 00:00 99.7 110 19 130/65 (86) 96 05/10/20 00:00 106 05/09/20 22:34 98.9 05/09/20 22:00 100.4 115 19 199/94 (129) 96 05/09/20 21:37 Room Air 5.0 05/09/20 19:04 98.7 115 16 187/97 99 Room Air 5.0 05/09/20 17:40 115 15 175/90 100 05/09/20 17:10 84 18 170/80 98 05/09/20 16:30 98.3 82 15 178/95 94 Room Air Intake and Output 05/09/20 05/10/20 19:00 07:00 Intake Total 1000 ml 210 ml Output Total 700 ml Balance 300 ml 210 ml Intake Oral 210 ml IV Total 1000 ml Output Urine Total 700 ml # Voids 1 Laboratory Tests 05/10/20 06:00: White Blood Count 8.7, Red Blood Count 4.23L, Hemoglobin 12.7L, Hematocrit 39.9L , Mean Corpuscular Volume 95, Mean Corpuscular Hemoglobin 30.1, Mean Corpuscular Hemoglobin Concent 31.9L, Red Cell Distribution Width 14.4, Platelet Count 266, Mean Platelet Volume 6.3L, Neutrophils (%) (Auto) 76.5H, Lymphocytes (%) (Auto) 11.1L, Monocytes (%) (Auto) 11.5H, Eosinophils (%) (Auto) 0.0, Basophils (%) (Auto) 0.9, Sodium Level 139, Potassium Level 3.4L, Chloride Level 101, Carbon Dioxide Level 28, Anion Gap 10, Blood Urea Nitrogen 27H, Creatinine 1.9H, Estimat Glomerular Filtration Rate 44.0, Glucose Level 119H, Calcium Level 9.2, Total Bilirubin 1.0, Aspartate Amino Transf (AST/SGOT) 27, Alanine Aminotransferase (ALT/SGPT) 18, Alkaline Phosphatase 89, Troponin I 0.023, Total Protein 8.4H, Albumin 3.8, Globulin 4.6, Albumin/Globulin Ratio 0.8L, Lipase 941H Height (Feet): 5 Height (Inches): 8.00 Weight (Pounds): 138 General Appearance: alert EENT: PERRL/EOMI Neck: supple Cardiovascular: regular rhythm Respiratory/Chest: crackles/rales Abdomen: soft - open colestomy wound Salomón White MD May 10, 2020 15:38
--- NOTE | 2020-05-10 15:40 | General Progress Note ---
Subjective Allergies: Coded Allergies: LISINOPRIL (Verified Allergy, Unknown, 04/10/20) METOCLOPRAMIDE (Unverified Allergy, Unknown, 05/09/20) Subjective awake in bed Objective Last 24 Hour Vital Signs Date Time Temp Pulse Resp B/P (MAP) Pulse Ox O2 Delivery O2 Flow Rate FiO2 05/10/20 14:47 98.8 05/10/20 13:00 115/75 05/10/20 12:00 85 05/10/20 12:00 97.9 89 20 116/63 (80) 99 05/10/20 09:06 135/83 05/10/20 09:06 89 135/83 05/10/20 08:00 98.8 89 16 135/83 (100) 99 05/10/20 08:00 86 05/10/20 06:11 191/113 05/10/20 04:00 97 05/10/20 04:00 98.9 94 19 191/113 (139) 98 05/10/20 00:00 99.7 110 19 130/65 (86) 96 05/10/20 00:00 106 05/09/20 22:34 98.9 05/09/20 22:00 100.4 115 19 199/94 (129) 96 05/09/20 21:37 Room Air 5.0 05/09/20 19:04 98.7 115 16 187/97 99 Room Air 5.0 05/09/20 17:40 115 15 175/90 100 05/09/20 17:10 84 18 170/80 98 05/09/20 16:30 98.3 82 15 178/95 94 Room Air Intake and Output 05/09/20 05/10/20 19:00 07:00 Intake Total 1000 ml 210 ml Output Total 700 ml Balance 300 ml 210 ml Intake Oral 210 ml IV Total 1000 ml Output Urine Total 700 ml # Voids 1 Laboratory Tests 05/10/20 06:00: White Blood Count 8.7, Red Blood Count 4.23L, Hemoglobin 12.7L, Hematocrit 39.9L , Mean Corpuscular Volume 95, Mean Corpuscular Hemoglobin 30.1, Mean Corpuscular Hemoglobin Concent 31.9L, Red Cell Distribution Width 14.4, Platelet Count 266, Mean Platelet Volume 6.3L, Neutrophils (%) (Auto) 76.5H, Lymphocytes (%) (Auto) 11.1L, Monocytes (%) (Auto) 11.5H, Eosinophils (%) (Auto) 0.0, Basophils (%) (Auto) 0.9, Sodium Level 139, Potassium Level 3.4L, Chloride Level 101, Carbon Dioxide Level 28, Anion Gap 10, Blood Urea Nitrogen 27H, Creatinine 1.9H, Estimat Glomerular Filtration Rate 44.0, Glucose Level 119H, Calcium Level 9.2, Total Bilirubin 1.0, Aspartate Amino Transf (AST/SGOT) 27, Alanine Aminotransferase (ALT/SGPT) 18, Alkaline Phosphatase 89, Troponin I 0.023, Total Protein 8.4H, Albumin 3.8, Globulin 4.6, Albumin/Globulin Ratio 0.8L, Lipase 941H Height (Feet): 5 Height (Inches): 8.00 Weight (Pounds): 138 Extremities: non-tender Assessment/Plan Assessment/Plan: open wound on stomach esrd on hd htn dm npo ivf surgery on case nephrology consult Salomón White MD May 10, 2020 15:40
--- NOTE | 2020-05-10 15:44 | Consultation ---
History of Present Illness General Date patient seen: May 10, 2020 Reason for Hospitalization: Abdominal Pain Present Illness HPI 59-year-old male past medical history of hypertension, asthma, seizure disorder and status post colostomy placement who presents to the ER complaining of a bdominal pain for 2 days. Patient currently lives in a [facility]. Apparently he has had abdominal pain for the past couple of days and developed nausea and vomiting day of admission. He denies cough or fever but does report some mild shortness of breath. Brought in by EMS. And is a poor historian. surgery called to evaluate and assist with care. patient states he had hernia and after surgery was given a colostomy a few years ago. cannot recall where and how long ago. limited history of events from patient. states for a few days noted prolapse and feels pain. +n/v. ct noted Allergies: Coded Allergies: LISINOPRIL (Verified Allergy, Unknown, 04/10/20) METOCLOPRAMIDE (Unverified Allergy, Unknown, 05/09/20) COVID-19 Screening Contact w/high risk pt: No Experienced COVID-19 symptoms?: No Medication History Scheduled Amlodipine Besylate* (Amlodipine Besylate*), MG ORAL DAILY, (Reported) Clonidine Hcl* (Catapres*), 0.1 MG ORAL EVERY 6 HOURS, (Reported) Scheduled PRN Hydrocodone Bit/Acetaminophen 5-325* ([place] 5-325 Tablet*), 1 TAB ORAL Q4H PRN for For Pain, (Reported) Patient History Limited by: other History Provided By: Patient, Medical Record, PMD Healthcare decision maker Resuscitation status Advanced Directive on File Past Medical/Surgical History Past Medical/Surgical History: (1) Colostomy prolapse (2) Dehydration (3) Acute renal failure (4) Perinephric fluid collection (5) Tetrahydrocannabinol (THC) dependence (6) Malignant hypertension (7) Sinus tachycardia (8) Uncontrolled hypertension (9) Pancreatitis (10) Nausea & vomiting Review of Systems Review of Symptoms General ROS: no weight loss or fever Psychological ROS: no depression or mood changes, no memory loss Ophthalmic ROS: no visual changes or eye irritation ENT ROS: no nasal congestion, hearing loss, dizziness Allergy and Immunology ROS: no allergic symptoms or urticaria Hematological and Lymphatic ROS: no swollen glands, unusual bleeding or bruising Endocrine ROS: no polyuria, polydipsia, weight changes, temperature intolerance Respiratory ROS: no cough, shortness of breath, or wheezing Cardiovascular ROS: no chest pain or dyspnea on exertion Gastrointestinal ROS: + abdominal pain, -bright red blood in stool. Musculoskeletal ROS: no myalgias or arthralgias Neurological ROS: no TIA or stroke symptoms Dermatological ROS: no new or changing skin lesions, rashes or pruritis Physical Exam Physical Exam General appearance: alert, cooperative, no distress, appears stated age Head: Normocephalic, without obvious abnormality, atraumatic Eyes: conjunctivae/corneas clear. PERRL, EOM's intact. Fundi benign Throat: Lips, mucosa, and tongue normal. Teeth and gums normal Neck: supple, symmetrical, trachea midline, no adenopathy, thyroid: not enlarged, symmetric, no tenderness/mass/nodules, no carotid bruit and no JVD Lungs: clear to auscultation bilaterally Heart: regular rate and rhythm, S1, S2 normal, no murmur, click, rub or gallop Abdomen: soft, non-tender. Bowel sounds normal. No masses, no organomegaly. llq colostomy with 6cm of prolapsed bowel unable to reduce currently. stool in bag Extremities: extremities normal, atraumatic, no cyanosis or edema Pulses: 2+ and symmetric Skin: Skin color, texture, turgor normal. No rashes or lesions Neurologic: Grossly normal Last 24 Hour Vital Signs Date Time Temp Pulse Resp B/P (MAP) Pulse Ox O2 Delivery O2 Flow Rate FiO2 05/10/20 14:47 98.8 05/10/20 13:00 115/75 05/10/20 12:00 85 05/10/20 12:00 97.9 89 20 116/63 (80) 99 05/10/20 09:06 135/83 05/10/20 09:06 89 135/83 05/10/20 08:00 98.8 89 16 135/83 (100) 99 05/10/20 08:00 86 05/10/20 06:11 191/113 05/10/20 04:00 97 05/10/20 04:00 98.9 94 19 191/113 (139) 98 05/10/20 00:00 99.7 110 19 130/65 (86) 96 05/10/20 00:00 106 05/09/20 22:34 98.9 05/09/20 22:00 100.4 115 19 199/94 (129) 96 05/09/20 21:37 Room Air 5.0 05/09/20 19:04 98.7 115 16 187/97 99 Room Air 5.0 05/09/20 17:40 115 15 175/90 100 05/09/20 17:10 84 18 170/80 98 05/09/20 16:30 98.3 82 15 178/95 94 Room Air Intake and Output 05/09/20 05/10/20 19:00 07:00 Intake Total 1000 ml 210 ml Output Total 700 ml Balance 300 ml 210 ml Intake Oral 210 ml IV Total 1000 ml Output Urine Total 700 ml # Voids 1 Laboratory Tests Test 05/10/20 06:00 White Blood Count 8.7 K/UL (4.8-10.8) Red Blood Count 4.23 M/UL (4.70-6.10) L Hemoglobin 12.7 G/DL (14.2-18.0) L Hematocrit 39.9 % (42.0-52.0) L Mean Corpuscular Volume 95 FL (80-99) Mean Corpuscular Hemoglobin 30.1 PG (27.0-31.0) Mean Corpuscular Hemoglobin Concent 31.9 G/DL (32.0-36.0) L Red Cell Distribution Width 14.4 % (11.6-14.8) Platelet Count 266 K/UL (150-450) Mean Platelet Volume 6.3 FL (6.5-10.1) L Neutrophils (%) (Auto) 76.5 % (45.0-75.0) H Lymphocytes (%) (Auto) 11.1 % (20.0-45.0) L Monocytes (%) (Auto) 11.5 % (1.0-10.0) H Eosinophils (%) (Auto) 0.0 % (0.0-3.0) Basophils (%) (Auto) 0.9 % (0.0-2.0) Sodium Level 139 MMOL/L (136-145) Potassium Level 3.4 MMOL/L (3.5-5.1) L Chloride Level 101 MMOL/L (98-107) Carbon Dioxide Level 28 MMOL/L (21-32) Anion Gap 10 mmol/L (5-15) Blood Urea Nitrogen 27 mg/dL (7-18) H Creatinine 1.9 MG/DL (0.55-1.30) H Estimat Glomerular Filtration Rate 44.0 mL/min (>60) Glucose Level 119 MG/DL (74-106) H Calcium Level 9.2 MG/DL (8.5-10.1) Total Bilirubin 1.0 MG/DL (0.2-1.0) Aspartate Amino Transf (AST/SGOT) 27 U/L (15-37) Alanine Aminotransferase (ALT/SGPT) 18 U/L (12-78) Alkaline Phosphatase 89 U/L (46-116) Troponin I 0.023 ng/mL (0.000-0.056) Total Protein 8.4 G/DL (6.4-8.2) H Albumin 3.8 G/DL (3.4-5.0) Globulin 4.6 g/dL Albumin/Globulin Ratio 0.8 (1.0-2.7) L Lipase 941 U/L (73-393) H Height (Feet): 5 Height (Inches): 8.00 Weight (Pounds): 138 Medications Current Medications Medications (Trade) Dose Ordered Sig/Myrtle Route PRN Reason Start Time Stop Time Status Last Admin Dose Admin Acetaminophen (Tylenol) 650 mg Q4H PRN ORAL Fever 05/09/20 20:30 06/08/20 20:29 05/09/20 22:04 Acetaminophen (Tylenol) 650 mg Q4H PRN ORAL Mild Pain (Pain Scale 1-3) 05/09/20 20:30 06/08/20 20:29 Amlodipine Besylate (Norvasc) 10 mg DAILY ORAL 05/10/20 09:00 06/09/20 08:59 05/10/20 09:06 Ceftriaxone Sodium 1 gm/ Dextrose 55 ml @ 110 mls/hr Q24H IVPB 05/09/20 22:00 05/16/20 21:59 05/09/20 22:03 Clonidine HCl (Catapres Tab) 0.1 mg EVERY 6 HOURS PRN ORAL SBP >160 05/09/20 20:30 08/07/20 20:29 05/10/20 06:11 Hydralazine HCl (Apresoline) 50 mg TID ORAL 05/10/20 09:00 08/08/20 08:59 05/10/20 09:06 Ondansetron HCl (Zofran) 4 mg Q4HR PRN IVP Nausea & Vomiting 05/09/20 20:30 06/08/20 20:29 Tramadol HCl (Ultram) 50 mg Q6H PRN ORAL pain 05/10/20 14:00 05/17/20 13:59 05/10/20 14:17 Assessment/Plan Problem List: (1) Uncontrolled hypertension ICD Codes: I10 - Essential (primary) hypertension SNOMED: 51299490, 92702867 (2) Pancreatitis ICD Codes: K85.90 - Acute pancreatitis without necrosis or infection, unspecified SNOMED: 50761498 (3) Malignant hypertension ICD Codes: I10 - Essential (primary) hypertension SNOMED: 78996504 (4) Sinus tachycardia ICD Codes: R00.0 - Tachycardia, unspecified SNOMED: 23158101 (5) Dehydration ICD Codes: E86.0 - Dehydration SNOMED: 09595616 (6) Acute renal failure ICD Codes: N17.9 - Acute kidney failure, unspecified SNOMED: 74443922 (7) Colostomy prolapse Assessment & Plan: 59M with hx of colostomy unsure why and patient poor historian cannot state where or when ostomy given. states went for hernia repair and ended up with ostomy but limited otherwise in history. admitted for abd pain noted to have significant 6inch + prolapse unable to reduce at this time bad with contents tolerating diet acute pancreatitis. will monitor to ensure functional and attempt reduction patient will need ostomy revised as high risk for incarceration / strangulation cont current care plan will follow with recs and exam ABDOMEN: Liver: Unremarkable Gallbladder and bile ducts: Cholelithiasis. Pancreas: Unremarkable. Spleen: Unremarkable. Adrenals: Bulbous adrenal glands. Kidneys and ureters: No renal calculi or obstructive changes. Stomach and bowel: Previous bowel surgery with ostomy in the left side of the abdomen. Parastomal hernia with externalized bowel segments and some fluid. PELVIS: Appendix: No findings to suggest acute appendicitis. Bladder: Unremarkable. Reproductive: Unremarkable. ABDOMEN and PELVIS: Intraperitoneal space: Trace fluid in the pelvis. Bones/joints: No acute fracture. Soft tissues: See above. Vasculature: Unremarkable. No abdominal aortic aneurysm. Lymph nodes: No enlarged lymph nodes. IMPRESSION: 1. Previous bowel surgery with ostomy in the left side of the abdomen. Parastomal hernia with externalized bowel segments and some fluid. 2. Cholelithiasis. ICD Codes: K94.09 - Other complications of colostomy SNOMED: 265121676 (8) Nausea & vomiting ICD Codes: R11.2 - Nausea with vomiting, unspecified SNOMED: 19125082 (9) Perinephric fluid collection ICD Codes: N28.89 - Other specified disorders of kidney and ureter SNOMED: 60990131 (10) Tetrahydrocannabinol (THC) dependence ICD Codes: F12.20 - Cannabis dependence, uncomplicated SNOMED: 48810121 Keegan Slaughter May 10, 2020 15:44
--- NOTE | 2020-05-10 19:31 | Cardiac Electrophysiology PN ---
Subjective Subjective [id number] Objective Last 24 Hour Vital Signs Date Time Temp Pulse Resp B/P (MAP) Pulse Ox O2 Delivery O2 Flow Rate FiO2 05/10/20 18:00 110/57 05/10/20 16:00 97.9 88 20 110/57 (74) 98 05/10/20 14:47 98.8 05/10/20 13:00 115/75 05/10/20 12:00 85 05/10/20 12:00 97.9 89 20 116/63 (80) 99 05/10/20 09:06 135/83 05/10/20 09:06 89 135/83 05/10/20 09:00 Room Air 05/10/20 08:00 98.8 89 16 135/83 (100) 99 05/10/20 08:00 86 05/10/20 06:11 191/113 05/10/20 04:00 97 05/10/20 04:00 98.9 94 19 191/113 (139) 98 05/10/20 00:00 99.7 110 19 130/65 (86) 96 05/10/20 00:00 106 05/09/20 22:34 98.9 05/09/20 22:00 100.4 115 19 199/94 (129) 96 05/09/20 21:37 Room Air 5.0 Intake and Output 05/09/20 05/10/20 19:00 07:00 Intake Total 1000 ml 210 ml Output Total 700 ml Balance 300 ml 210 ml Intake Oral 210 ml IV Total 1000 ml Output Urine Total 700 ml # Voids 1 Laboratory Tests Test 05/10/20 06:00 White Blood Count 8.7 K/UL (4.8-10.8) Red Blood Count 4.23 M/UL (4.70-6.10) L Hemoglobin 12.7 G/DL (14.2-18.0) L Hematocrit 39.9 % (42.0-52.0) L Mean Corpuscular Volume 95 FL (80-99) Mean Corpuscular Hemoglobin 30.1 PG (27.0-31.0) Mean Corpuscular Hemoglobin Concent 31.9 G/DL (32.0-36.0) L Red Cell Distribution Width 14.4 % (11.6-14.8) Platelet Count 266 K/UL (150-450) Mean Platelet Volume 6.3 FL (6.5-10.1) L Neutrophils (%) (Auto) 76.5 % (45.0-75.0) H Lymphocytes (%) (Auto) 11.1 % (20.0-45.0) L Monocytes (%) (Auto) 11.5 % (1.0-10.0) H Eosinophils (%) (Auto) 0.0 % (0.0-3.0) Basophils (%) (Auto) 0.9 % (0.0-2.0) Sodium Level 139 MMOL/L (136-145) Potassium Level 3.4 MMOL/L (3.5-5.1) L Chloride Level 101 MMOL/L (98-107) Carbon Dioxide Level 28 MMOL/L (21-32) Anion Gap 10 mmol/L (5-15) Blood Urea Nitrogen 27 mg/dL (7-18) H Creatinine 1.9 MG/DL (0.55-1.30) H Estimat Glomerular Filtration Rate 44.0 mL/min (>60) Glucose Level 119 MG/DL (74-106) H Calcium Level 9.2 MG/DL (8.5-10.1) Total Bilirubin 1.0 MG/DL (0.2-1.0) Aspartate Amino Transf (AST/SGOT) 27 U/L (15-37) Alanine Aminotransferase (ALT/SGPT) 18 U/L (12-78) Alkaline Phosphatase 89 U/L (46-116) Troponin I 0.023 ng/mL (0.000-0.056) Total Protein 8.4 G/DL (6.4-8.2) H Albumin 3.8 G/DL (3.4-5.0) Globulin 4.6 g/dL Albumin/Globulin Ratio 0.8 (1.0-2.7) L Lipase 941 U/L (73-393) H Microbiology Date/Time Source Procedure Growth Status 05/09/20 10:00 Nasopharynx SARS-CoV-2 RdRp Gene Assay - Final Complete Abhishek Gutiérrez MD May 10, 2020 19:31
--- NOTE | 2020-05-10 19:40 | NUR ---
NURSE HAND-OFF REPORT: Important Events on Shift: Kasandra aware of prolapsed intestines Patient Status: full code, stable condition, room air, vitals WNL Diet: clear liquid diet Pending Orders: [] Pending Results/Labs:[] Pending MD notification:[] Latest Vital Signs: Temperature 97.9 , Pulse 81 , B/P 110 /57 , Respiratory Rate 20 , O2 SAT 98 , Room Air, O2 Flow Rate 5.0 . Vital Sign Comment: [] EKG Rhythm: Sinus Rhythm Rhythm change?: N MD Notified?: - MD Response: Latest Todd Fall Score: 20 Fall Risk: Low Risk Safety Measures: Call light Within Reach, Bed Alarm Zone 2, Side Rails Side Rails x2, Bed position Low and Locked. Fall Precautions: Yellow Socks Yellow Gown Door Sign Patient Fall Education Report given to Crista Brunner RN.
--- NOTE | 2020-05-10 19:53 | NUR ---
NURSE NOTES: Patient received from Breanne CAZARES. Patient alert and oriented x4. Patient is ambulatory no DVT ordered. on 2L of nasal cannula saturating well. On clear liquid diet. No iv site at the moment but will insert one later this shift. no s/s of distress. c/o abdominal pain but PRN pain medication not scheduled yet, notified primary doctor if possible to adjust schedule for pain med. awaiting call back. Bed in lowest position and locked. call light and bedside table within reach.
[2020-05-10] MEDS: traMADol 50mg tab ORAL PRN (20:37)
--- NOTE | 2020-05-10 22:30 | NUR ---
NURSE NOTES: New IV inserted on Left wrist 22G running previous Potassium but patient complained of burning sensation, requesting for PO Potassium, will notify . Colostomy bag emptied.
--- NOTE | 2020-05-10 22:30 | Consultation ---
DATE OF CONSULTATION: 05/09/2020 CARDIOLOGY CONSULTATION CONSULTING PHYSICIAN: Abhishek Gutiérrez MD ATTENDING PHYSICIAN: Salomón White MD REASON FOR CONSULTATION: Management of hypertension and preoperative clearance. HISTORY OF PRESENT ILLNESS: The patient is a 59-year-old gentleman with history of hypertension, seizure disorder, asthma, history of colostomy placement a few years ago, presented to the emergency room considered complaining of abdominal pain for two days. The patient currently lives in a board and care, has been having abdominal pain for last couple of days. The patient started having nausea and vomiting on day of admission. The patient was evaluated by Dr. Slaughter from surgery perspective and had colostomy prolapse. The patient is not being considered for surgery and a Cardiology consultation was obtained for further evaluation and management. REVIEW OF SYSTEMS: Negative other than what was mentioned in the history of present illness. PAST MEDICAL HISTORY: As mentioned above. FAMILY HISTORY: Noncontributory. SOCIAL HISTORY: He lives in a board and care. Does not smoke or drink alcohol. PHYSICAL EXAMINATION: VITAL SIGNS: Show blood pressure of 110/57, pulse is 88, respirations 18, and temperature 98. HEAD AND NECK: Showed no JVD. LUNGS: Coarse rhonchi. CARDIOVASCULAR: Shows regular S1 and S2 with no gallop or murmur. ABDOMEN: Status post colostomy, but difficult prolapse. EXTREMITIES: No pitting edema. LABORATORY AND DIAGNOSTIC DATA: Labs show white count of 8.7, hematocrit 12.9, hematocrit 40, and platelet count is 266,000. Sodium is 139, potassium 3.4, BUN of 27, creatinine 1.9, and glucose of 118. Troponin is negative. Amylase and lipase are elevated. Lipase of 941 and amylase of 233. ASSESSMENT AND PLAN: 1. Hypertension. Blood pressure is currently stable, on amlodipine 10 mg daily and hydralazine 50 mg 3 times daily. The patient also on p.r.n. clonidine. 2. Colostomy prolapse. We will get an echocardiogram. We will get an EKG for clearance prior to the surgery. 3. Pancreatitis and repeated lipase of around 5000. 4. Hypokalemia. Potassium will be replaced. First troponin is negative to completely rule out SD protocol as above, but the patient does not have any chest pain. Of note, the patient is allergic to lisinopril and metoclopramide. Thank you very much for allowing me to participate in the care of this patient. Please do not hesitate to contact me for any questions regarding my evaluation. Sincerely, Abhishek Gutiérrez M.D. DR: Debbie JOB#: [id number] CC:
[2020-05-10] MEDS: D5 1/2NS 1,000 ML IV SCH (23:48)
[2020-05-10] MEDS: cefTRIAXone 1 GM in D5W 55 ML IVPB SCH (23:49)
--- NOTE | 2020-05-11 03:00 | Consultation ---
DATE OF CONSULTATION: 05/10/2020 GASTROENTEROLOGY CONSULTATION CONSULTING PHYSICIAN: Gray Puentes MD CHIEF COMPLAINT: I was asked to see this patient by Dr. Salomón White for evaluation of abdominal pain, colostomy complications, and elevated pancreatic enzymes. HISTORY OF PRESENT ILLNESS: The patient is a 59-year-old man, who is somewhat of a poor historian, who came into the hospital due to protruding ostomy and abdominal pain. The patient is somewhat vague, but he believes he had this colostomy placed at the [facility] [place] 3 years ago. He states that he went to surgery for what he perceived as a simple hernia repair, but returned with a colostomy bag. The patient's last colonoscopy about 6 months ago. The patient's new pain has been going on for about a week and his colostomy has been protruding. PAST MEDICAL HISTORY: History of diverticulitis. FAMILY HISTORY: Noncontributory. SOCIAL HISTORY: The patient does smoke, but he does not drink. He is single. REVIEW OF SYSTEMS: Otherwise negative. PHYSICAL EXAMINATION: GENERAL: A well-developed, well-nourished man, seen in his room. HEENT: Normocephalic and atraumatic. Sclerae anicteric. Oropharynx clear. NECK: Supple. CHEST: Clear to auscultation. CARDIOVASCULAR: Revealed a regular rate. ABDOMEN: Soft with a 10 cm protrusion of the small bowel through the colostomy. There was stool in the colostomy bag. EXTREMITIES: Revealed no edema. LABORATORY DATA: Noted. ASSESSMENT: This patient presents with colostomy complication in the form of a herniation and protruding of the small bowel, which could not be reduced by the surgical staff. The patient will need to be seen closely by surgery and a revision is apparently necessary. The patient also has an elevated lipase level, but this may be due to non-pancreatic sources given the somewhat strangulated appearance of the small bowel protrusion. The patient does not have any epigastric area pain that would suggest an acute pancreatitis. In the meantime, the patient's creatinine has risen and therefore he should be aggressively hydrated. He will be followed closely and more importantly surgical management will be considered. RECOMMENDATIONS: Per above discussion and per orders written in the chart. Thank you for asking me to participate in the care of this patient. Gray Puentes M.D. DR: LUCIA JOB#: [id number] CC:
[2020-05-11 04:00] VITALS: BP 136/64
[2020-05-11 08:00] VITALS: BP_SYST 127; BP_SYST 133; BP_DIAS 67; BP_DIAS 70
--- NOTE | 2020-05-11 08:00 | NUR ---
NURSE NOTES: Notified Dr. Gutiérrez regarding EKG findings (ST and T wave abnormality) NSR, awaiting response/potential orders. Patient in stable condition.
[2020-05-11] MEDS: D5 1/2NS 1,000 ML IV SCH (08:08)
--- NOTE | 2020-05-11 08:11 | NUR ---
NURSE HAND-OFF REPORT: Important Events on Shift:[New IV new iv fluids orderd] Patient Status: [FC, A&O x4] Diet: [clear liquid diet] Pending Orders: [] Pending Results/Labs:[] Pending MD notification:[] Latest Vital Signs: Temperature 98.1 , Pulse 86 , B/P 136 /64 , Respiratory Rate 20 , O2 SAT 98 , Room Air, O2 Flow Rate 5.0 . Vital Sign Comment: [] EKG Rhythm: Sinus Rhythm Rhythm change?: N MD Notified?: - MD Response: Latest Todd Fall Score: 20 Fall Risk: Low Risk Safety Measures: Call light Within Reach, Bed Alarm Zone 2, Side Rails Side Rails x2, Bed position Low and Locked. Fall Precautions: Yellow Socks Yellow Gown Door Sign Patient Fall Education Report given to [Breanne].
--- NOTE | 2020-05-11 08:12 | NUR ---
NURSE NOTES: Received hand-off report from Crista Brunner RN. Patient in stable condition, no changes noted regarding prolapsed intestine, alert and oriented to baseline, breathing even and unlabored, cardiac monitor technician on, vitals WNL, IV sites intact. Bed in lowest and locked position, bed alarm on, call light within reach.
[2020-05-11] MEDS: traMADol 50mg tab ORAL PRN (08:47)
--- NOTE | 2020-05-11 10:10 | Diagnostic Imaging Report ---
EXAM: XR Abdomen, 2 Views CLINICAL HISTORY: F/U TECHNIQUE: Frontal supine views of the abdomen/pelvis. COMPARISON: CT abdomen pelvis dated 05/09/20 FINDINGS: Intraperitoneal space: No free air. Gastrointestinal tract: Left lower quadrant ostomy. Nonspecific, nonobstructive bowel gas pattern. Organs: The renal shadows are partially obscured by bowel gas. No evidence of organomegaly. Bones/joints: Mild degenerative disc space narrowing at L4-5. Vasculature: Subcentimeter calcified phleboliths in the right pelvis. IMPRESSION: 1. Left lower quadrant ostomy. 2. Nonspecific, nonobstructive bowel gas pattern.
[2020-05-11] MEDS: HydrALAZINE 50mg tab ORAL SCH (10:16)
[2020-05-11 12:00] VITALS: BP 146/70
--- NOTE | 2020-05-11 12:25 | NUR ---
NURSE NOTES: Patient stated he wanted to leave AMA, despite updating patient on the MD plans on bowel surgery sometime during the week and education regarding his unstable condition, risks, complications that may occur when leaving prior to being cleared and seen by the doctor as well as the need for close monitoring, patient refused to stay. AMA paper was signed, patient ID band discarded in the appropriate receptacle, IV on left hand 20g and right upper arm IV catheters removed and applied gauze and tape to IV sites, skin clean, dry and intact, site monitor and leads removed and cleaned and given to MT. Patient belongings list signed, all patient belongings given back to patient. No incidents noted and patient left the hospital premises on 12:25 05/11/[address]. Dr. White made aware. Patient vitals WNL prior to leaving, in no apparent distress, alert and oriented x4.
--- NOTE | 2020-05-11 13:30 | Surgery Progress Note ---
Surgery Progress Note Subjective Symptoms: improved, tolerating diet, voiding well, passing flatus, BM, pain decreased Additional Comments ostomy reduced overnight wants to have his colostomy takedown discussed eval and outpatient management of colostomy takedown patient will see pcp and surgeon in network outpatient for elective takedown Objective Last 24 Hour Vital Signs Date Time Temp Pulse Resp B/P (MAP) Pulse Ox O2 Delivery O2 Flow Rate FiO2 05/11/20 12:00 98.3 74 18 146/70 (95) 98 05/11/20 10:16 127/70 05/11/20 10:16 70 127/70 05/11/20 09:17 98.2 05/11/20 08:00 97.6 70 18 127/70 (89) 98 05/11/20 08:00 98.2 69 20 133/67 (89) 98 05/11/20 04:00 66 05/11/20 04:00 98.1 86 20 136/64 (88) 98 05/10/20 23:57 78 05/10/20 23:57 98.0 83 19 150/82 (104) 97 05/10/20 21:00 Room Air 05/10/20 20:00 98.7 80 20 130/79 (96) 95 05/10/20 20:00 81 05/10/20 18:00 110/57 05/10/20 16:00 81 05/10/20 16:00 97.9 88 20 110/57 (74) 98 05/10/20 14:47 98.8 I&O Intake and Output 05/10/20 05/11/20 19:00 07:00 Intake Total 300 ml 240 ml Output Total 400 ml Balance -100 ml 240 ml Intake Oral 300 ml 240 ml Output Urine Total 400 ml # Bowel Movements 4 3 Dressing: dry Wound: clean Cardiovascular: RSR Respiratory: clear Abdomen: soft, non-tender, present bowel sounds, non-distended Extremities: no edema, no tenderness, no cyanosis Plan Problems: (1) Uncontrolled hypertension (2) Pancreatitis (3) Malignant hypertension (4) Sinus tachycardia (5) Dehydration (6) Acute renal failure (7) Colostomy prolapse Assessment & Plan: 59M with hx of colostomy unsure why and patient poor historian cannot state where or when ostomy given. states went for hernia repair and ended up with ostomy but limited otherwise in history. admitted for abd pain noted to have significant 6inch + prolapse unable to reduce at this time bad with contents tolerating diet acute pancreatitis. will monitor to ensure functional and attempt reduction patient will need ostomy revised as high risk for incarceration / strangulation cont current care plan will follow with recs and exam ABDOMEN: Liver: Unremarkable Gallbladder and bile ducts: Cholelithiasis. Pancreas: Unremarkable. Spleen: Unremarkable. Adrenals: Bulbous adrenal glands. Kidneys and ureters: No renal calculi or obstructive changes. Stomach and bowel: Previous bowel surgery with ostomy in the left side of the abdomen. Parastomal hernia with externalized bowel segments and some fluid. PELVIS: Appendix: No findings to suggest acute appendicitis. Bladder: Unremarkable. Reproductive: Unremarkable. ABDOMEN and PELVIS: Intraperitoneal space: Trace fluid in the pelvis. Bones/joints: No acute fracture. Soft tissues: See above. Vasculature: Unremarkable. No abdominal aortic aneurysm. Lymph nodes: No enlarged lymph nodes. IMPRESSION: 1. Previous bowel surgery with ostomy in the left side of the abdomen. Parastomal hernia with externalized bowel segments and some fluid. 2. Cholelithiasis. (8) Nausea & vomiting (9) Perinephric fluid collection (10) Tetrahydrocannabinol (THC) dependence Keegan Slaughter May 11, 2020 13:30
--- NOTE | 2020-05-12 15:43 | NUR ---
[facility]URANCE [facility]INICALS/REVIEW (05/09-05/11) [phone] PH [phone]
--- NOTE | 2020-05-12 16:16 | Discharge Summary ---
Discharge Summary Discharge Summary _ DATE OF ADMISSION: 05/09/2020 DATE OF DISCHARGE: 05/11/2020 Patient left AGAINST MEDICAL ADVICE REASON FOR ADMISSION: 59 years old male with past medical history of hypertension, asthma, seizure disorder, status post colostomy, presented to emergency department complaining of abdominal pain for 2 days. Patient reported abdominal pain for the past couple of days along with associated nausea and episode of non -bloody non-bilious vomiting earlier that day. He denied fever or chills. He reported mild shortness of breath. He denied cough. Upon evaluation vital signs were stable. Laboratory work-up revealed no leukocytosis , stable hemoglobin, hematocrit and platelet count. Stable electrolytes and renal parameters . Lactic acid 2.0 Glucose 107 Stable LFT , lipase 399. Urinalysis revealed +3 protein , no evidence of UTI. Rapid COVID-[address] scan of the abdomen and pelvis revealed previous bowel surgery with ostomy in the left side of the abdomen. Parastomal hernia with externalized bowel segment and some fluid. Cholelithiasis. Patient received IV fluids , analgesic , antiemetic . Patient also demonstrated elevated blood pressure and received multiply doses of antihypertensive. Patient subsequently admitted for further management. 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 Mcintosh GI specialist [facility] Patient admitted to telemetry floor . Patient started on IV hydration . Patient initially was kept n.p.o. Seasonal [employer] f, GI specialist and surgery followed. Blood pressure was managed with calcium channel nani and hydralazine . Clonidine was on board as needed for blood pressures spikes. Blood pressure d stabilized. Troponin was negative. EKG revealed no acute ischemic changes. Echocardiogram revealed preserved ejection fraction of 60% ; no evidence of WMA. GI specialist seen and evaluated patient . Repeated lipase 941. Abdominal x-ray revealed left lower quadrant ostomy. Nonspecific nonobstructive bowel gas pattern. Patient started on liquid diet. Patient did not have epigastric pain to suggest acute pancreatitis . Elevated lipase may be due to nonpancreatic sources. Patient was on aggressive hydration given rising creatinine - 1.9. Surgeon seen and evaluated patient. Patient initially had a significant 6 inch prolapse , which surgeon was unable to reduce at that time . However ostomy reduced overnight. Patient started on diet . Patient was able to tolerate diet , Patient voided well and was passing flatus . Patient had bowel movement . Pain decreased . Ostomy reduced overnight as mentioned above. Patient verbalized desire to have his colostomy takedown. Surgeon discussed with patient evaluation and outpatient management of colostomy takedown. Patient will see his primary care provider and surgeon in the network for elective elective takedown. Per surgeon patient will need ostomy revision , as he was at high risk for incarceration/strangulation. On 05/11 patient decided to leave AGAINST MEDICAL ADVICE. The risks and consequences of signing AGAINST MEDICAL ADVICE were discussed with patient in detail. Patient verbalized understanding, nevertheless signed AMA form and left. FINAL DIAGNOSES: Colostomy prolapse Malignant hypertension Elevated lipase, possibly pancreatitis Acute renal failure Dehydration I have been assigned to dictate discharge summary for this account. I was not involved in the patient's management. Daisy Gayle NP May 12, 2020 16:13
== END 2020-05-11 12:57 | disposition left against medical advice (07) | DRG 252 ==
LOC: EDBD 09:34 → EMR 10:00 → 2E 11:30 → EDBEDREQ 13:11 → EDBEDREQSVC 17:10 → EDBEDREQ 17:29 → 2E 23:24
DX: K94.09 Other complications of colostomy (principal); K85.90 Acute pancreatitis without necrosis or infection, unspecified; G40.909 Epilepsy, unspecified, not intractable, without status epilepticus; I10 Essential (primary) hypertension; J45.909 Unspecified asthma, uncomplicated; N17.9 Acute kidney failure, unspecified; E11.22 Type 2 diabetes mellitus with diabetic chronic kidney disease; I12.0 Hypertensive chronic kidney disease with stage 5 chronic kidney disease or end stage renal disease; N18.6 End stage renal disease; Z99.2 Dependence on renal dialysis; Z88.8 Allergy status to other drugs, medicaments and biological substances; Y83.3 Surgical operation with formation of external stoma as the cause of abnormal reaction of the patient, or of later complication, without mention of misadventure at the time of the procedure; E86.0 Dehydration; R00.0 Tachycardia, unspecified; E87.6 Hypokalemia
CPT/HCPCS: 36415; 71045; 74018; 74176; 80053; 81003; 82150; 83605; 83690; 84484; 85025; 85610; 85730; 87040; 93005; 93306; 96361; 96374; 96375; 96376; 99285; J2405; J7030; U0002